=== PATIENT | male | born 1985 | race Caucasian/White ===

== ENCOUNTER 2020-02-02 11:47 | Outpatient (REF) | payer SELFPAY ==
[2020-02-04 12:41] LABS: COVID-19 RT-PCR Result NEGATIVE (Negative)
== END 2020-02-02 12:07 ==
LOC: NCHCN 11:47
PROVIDERS: PCP Physician Assistant Medical; Visit Provider Family Medicine
DX: Z20.828 Contact with and (suspected) exposure to other viral communicable diseases (principal)
CPT/HCPCS: U0003

== ENCOUNTER 2021-02-25 14:22 | Outpatient (REF) | payer OTHER, SELFPAY ==
[2021-02-26 17:18] LABS: COVID-19 RT-PCR UVMMC Result Negative (Negative)
== END 2021-02-25 14:23 | disposition home or self-care (01) ==
LOC: NCHCN 14:22
PROVIDERS: PCP Physician Assistant Medical; Visit Provider Internal Medicine
DX: Z20.822 Contact with and (suspected) exposure to COVID-19 (principal); J02.9 Acute pharyngitis, unspecified
CPT/HCPCS: U0003

== ENCOUNTER 2021-12-08 15:52 | Emergency (ER) | payer OTHER, SELFPAY ==
[2021-12-08 15:56] VITALS: BP 133/80; PULSE 66; RESP 16; TEMP 36.8; O2SAT 98
--- NOTE | 2021-12-08 16:00 | DI.RAD_ITS ---
Exam(s) XR FINGER LT RING EXAM: XR FINGER LT RING CLINICAL HISTORY: trauma. TECHNIQUE: 2D digital imaging was performed. COMPARISON: No exams were available for comparison FINDINGS: 3 views of the left 4th-ring finger: There is soft tissue swelling around the PIP joint. No evidence of fracture or dislocation. No abnormal soft tissue calcifications. No radiopaque foreign body. IMPRESSION: Soft tissue swelling. No fracture. No radiopaque foreign body.. No evidence of osteomyelitis. DATA REPOSITORY: RADIATION DOSE DELIVERED:
--- NOTE | 2021-12-08 17:47 | ED.GENADUL_ITS ---
Discharge Plan Disposition Patient Disposition: HOME Condition: Improving Discharge Details Clinical Impression: Laceration of finger Primary Care Provider: Fran Ronquillo ED Provider: João Trevino Discharge Instructions Instructions: Finger Laceration (ED) Additional Instructions: Watch for any signs of infection and return immediately to the emergency department if these occur. Otherwise keep dressing in place for the next 24-48 hours and then keep wound clean and dry. Return to the emergency department 10 days for suture removal.. Referrals: Fran Ronquillo PA [Primary Care Provider] - (As needed for reassessment) Discharge Data Discharge Date/Time-TO BE ENTERED AT DEPARTURE: 12/08/21 18:06 Medical Decision Making Patient presenting to the emergency department for chief complaint of injury to his left ring finger. He attempted to jump up and push some insulation into the ceiling and when he came back down his ring got caught on something and injured his finger. Patient does states full sensation and movement of the finger but mostly concerned about laceration to the base of the finger. Physical exam shows significantly swollen digit with ring in place. Patient was agreeable to ring removal and ring was cut off using ring cutter. Radiological imaging was performed and showed no acute fracture or worrisome findings. Patient was agreeable to suture repair and please see procedure note for repair. 8 sutures were placed and wound was well approximated. Given that patient just came in and we were able to thoroughly irrigate the wound I do not feel that patient requires antibiotic medication at this time but encouraged to watch for any signs of infection and return immediately if these occur. Patient placed in a f telma splint and encouraged to use this for the next 10 days and to keep wound clean and dry. After discussion of diagnosis and plan of care patient has no further needs, questions, or concerns and states clear understanding to return to the emergency department for any worsening symptoms. This documentation was generated using [employer] system, please disregard any oddities of phrase or misspellings. HPI General Mode of arrival: ambulatory . Date/Time Provider Initiated Documentation: 12/08/21 16:09 . Limitations to Documentation: no limitations . Information obtained by: patient and RN notes reviewed . History of Present Illness 36 year old M presents to the emergency department with the chief complaint of left ring finger injury, described as moderate, with intensity rated at 8. Quality is described as aching, and is localized to the left and upper extremity. Patient started experiencing this minute(s) (30) and it has been constant. No relieving factors improve symptom(s), No exacerbating factors reported . Patient notes no other symptoms.. Patient did receive the following treatments prior to arrival, none Related Data Allergies Allergy/AdvReac Type Severity Reaction Status Date / Time No Known Drug Allergies Allergy Verified 05/30/20 09:43 shrimp Allergy Verified 12/08/21 16:15 General Stated Complaint: Trauma LUCIEN: 2 Review of Systems Cardiovascular Cardiovascular: Denies syncope and Denies lightheadedness Musculoskeletal Musculoskeletal: Reports as per HPI, Denies deformity, Denies limited range of motion and Denies numbness Integumentary/Breasts Skin/Breast: Reports as per HPI Neurologic Neurologic: Denies syncope, Denies numbness and Denies paresthesias PFSH All Active Problems Laceration of finger (Acute) Skin lesion (Acute) Medical History Epididymal cyst Shingles Testicular pain Verruca vulgaris Surgical History H/O vasectomy History of repair of anterior cruciate ligament of left knee Social History Smoking/Tobacco Use Status: Never Smoking risk assessment performed?: Yes Alcohol Intake: current Drug use: Never Substance use type: does not use Do you feel safe at home: Yes Do you feel safe in your relationship?: Yes Exam Const General: cooperative, no acute distress and not ill appearing Orientation: alert, awake and oriented x3 Resp Effort & Inspection: normal respiratory effort, able to speak in complete sentences and no respiratory distress Cardio Rate: regular rate Rhythm: regular rhythm Pulses: normal peripheral pulses Skin General skin exam: no rashes or lesions noted Neuro General: patient alert, patient awake, patient oriented x3, moves all extremities and no focal motor deficits Sensory Exam: no sensory deficits noted Extrem General: normal exam except as noted Left upper extremity: hand Details: neuromotor exam normal, neurosensory exam normal, tendon exam normal, tenderness Location: of the 4th digit, vascular exam Details: radial pulse present and normal capillary refill, normal ROM of fingers, swelling Location: of the 4th digit and laceration 4th digit palmar aspect proximal Details: linear, avulsion, actively bleeding and involving subcutaneous tissue Course Vital Signs Vital signs: Vital Signs Temperature 36.8 C 12/08/21 15:56 Pulse 66 12/08/21 15:56 Respiratory Rate 16 12/08/21 15:56 Blood Pressure 133/80 12/08/21 15:56 Pulse Oximetry 98 12/08/21 15:56 Temperature 36.8 C 12/08/21 15:56 Temperature Source Temporal Artery Scan 12/08/21 15:56 Pulse 66 12/08/21 15:56 Respiratory Rate 16 12/08/21 15:56 Respiratory Effort 12/08/21 16:18 Respiratory Depth Normal 12/08/21 16:18 Respiratory Pattern Normal 12/08/21 16:18 Blood Pressure 133/80 12/08/21 15:56 Blood Pressure Position Sitting 12/08/21 15:56 Pulse Oximetry 98 12/08/21 15:56 Oxygen Delivery Method Room Air 12/08/21 15:56 Oxygen Flow Rate 0 12/08/21 15:56 Pain Level 7 12/08/21 15:56 Procedures Laceration Laceration 1: Site: hand Side (If applicable): left Size (cm): 5 Description: linear and clean Depth: simple, single layer Local Anesthetic: Lidocaine 1% Amount of anesthesia used (mL): 10 Pre-repair: wound explored, irrigated extensively and deep structures intact Skin layer closed with: other (Prolene) Size (cm): 4-0 Number of sutures: 8 Technique: simple, interrupted PAWSS Have you Been Recently Intoxicated or Drunk Within the Last 30 days?: Yes Have you Ever Experienced Previous Episodes of Alcohol Withdrawal?: No Have you ever Experienced Withdrawal Seizures?: No Have you ever Experienced Delirium Tremens(DT)s?: No Have you ever undergone Alcohol Rehabilitation Treatment (i.e, inpt ot out patient treatment programs)?: No Have you ever Experienced Blackouts?: No Have you ever Combined Alcohol with other Downers within the last 90 days?: No Result: 1
[2021-12-08 18:00] VITALS: BP 133/80; PULSE 66; RESP 16; TEMP 36.8; O2SAT 98
== END 2021-12-08 18:06 | disposition home or self-care (01) ==
PROVIDERS: Emergency Provider Nurse Practitioner Family; PCP Physician Assistant Medical
DX: S61.215A Laceration without foreign body of left ring finger without damage to nail, initial encounter (principal); W26.8XXA Contact with other sharp object(s), not elsewhere classified, initial encounter; Y93.39 Activity, other involving climbing, rappelling and jumping off
CPT/HCPCS: 12002; 99283; 73140; 99282

== ENCOUNTER 2021-12-18 13:30 | Emergency (ER) | payer SELFPAY ==
[2021-12-18 13:53] VITALS: BP 127/77; PULSE 66; RESP 14; TEMP 36.6; O2SAT 98
--- NOTE | 2021-12-18 14:03 | W.ED.GENAD ---
Discharge Plan Disposition Patient Disposition: HOME Condition: Stable Discharge Details Clinical Impression: Encounter for removal of sutures Primary Care Provider: Fran Ronquillo ED Provider: Mikala Torres Discharge Instructions Additional Instructions: Have the last suture removed in 3 days, allow it to air dry. No soaking. Referrals: Fran Ronquillo PA [Primary Care Provider] - 5 days Medical Decision Making Will leave one suture to left web for an additional 3 days. Remainder of 7 sutures removed by staff sonographer. This text was generated using [employer] dictation system, please disregard any oddities of phrase or misspellings. HPI General Mode of arrival: ambulatory. Date/Time Provider Initiated Documentation: 12/18/21 13:36. Limitations to Documentation: no limitations. Information obtained by: patient, RN notes reviewed and old records reviewed. HPI Narrative: 36-year-old male presents for suture removal he has 8 sutures placed to his left index finger. This occurred on 12/08/2021 he denies any problems. He does however have a suture within the web that is not well approximated. No signs of infection. Related Data Allergies Allergy/AdvReac Type Severity Reaction Status Date / Time No Known Drug Allergies Allergy Verified 05/30/20 09:43 shrimp Allergy Verified 12/08/21 16:15 General Stated Complaint: SutureRem LUCIEN: 5 Review of Systems Musculoskeletal Musculoskeletal: Reports as per HPI Integumentary/Breasts Skin/Breast: Reports as per HPI (suture removal) PFSH All Active Problems (Updated 12/18/21 @ 14:07 by Mikala Torres NP) Laceration of finger (Acute) Encounter for removal of sutures (Acute) Skin lesion (Acute) Medical History Epididymal cyst Shingles Testicular pain Verruca vulgaris Surgical History H/O vasectomy History of repair of anterior cruciate ligament of left knee Social History Smoking/Tobacco Use Status: Never Smoking risk assessment performed?: Yes Alcohol Intake: current Drug use: Never Substance use type: does not use Do you feel safe at home: Yes Do you feel safe in your relationship?: Yes Exam Skin Trauma: laceration (sutured laceration to left index finger, ) Course Vital Signs Vital signs: Vital Signs Temperature 36.6 C 12/18/21 13:53 Pulse 66 12/18/21 13:53 Respiratory Rate 14 12/18/21 13:53 Blood Pressure 127/77 12/18/21 13:53 Pulse Oximetry 98 12/18/21 13:53 Temperature 36.6 C 12/18/21 13:53 Temperature Source Skin 12/18/21 13:53 Pulse 66 12/18/21 13:53 Respiratory Rate 14 12/18/21 13:53 Blood Pressure 127/77 12/18/21 13:53 Blood Pressure Position Sitting 12/18/21 13:53 Pulse Oximetry 98 12/18/21 13:53 Oxygen Delivery Method Room Air 12/18/21 13:53 Oxygen Flow Rate 0 12/18/21 13:53 Pain Level 0 12/18/21 13:53
--- OUTSIDE RECORDS SUMMARY | 2021-12-18 14:42 | XMS_ITS | Clinical Summary ---
:1985 Demographics Home Phone Preferred Language Unknown Marital Status Unknown Cheondoism Affiliation Unknown Race Unknown Ethnic Group Unknown Author Organization [facility] Address [address] [place] [id number] Care Team Providers Name Role Phone Unavailable Primary Care Provider Unavailable Social History Tobacco Use Types Packs/Day Years Used Date Never Assessed Sex Assigned at Date Recorded Not on file Plan of Treatment Not on file
--- OUTSIDE RECORDS SUMMARY | 2021-12-18 14:42 | XMS_ITS | Encounter Summary ---
:1985 Demographics Home Phone Preferred Language Unknown Marital Status Unknown Holiness Affiliation Unknown Race Unknown Ethnic Group Unknown Author Organization [facility] Address [address] [place] [address] Care Team Providers Name Role Phone Unavailable Primary Care Provider Unavailable Encounter Details Date Type Department Care Team Description 02/02/2020 Lab Requisition [facility] Outr Resulting Lab, Pathology & Laboratory Provider [facility] [address], [place] [id number] Social History Tobacco Use Types Packs/Day Years Used Date Never Assessed Sex Assigned at Date Recorded Not on file documented as of this encounter Plan of Treatment Not on filedocumented as of this encounter Procedures Procedure Name Priority Date/Time Associated Comments Diagnosis DO NOT ORDER Today 02/02/2020 8:50 EDT Results for this STANDALONE - [facility] procedure are in COVID TEST the results section. COVID-19 TESTING Routine 02/02/2020 8:50 EDT Resu lts for this procedure are i n the results section. documented in this encounter Results DO NOT ORDER STANDALONE - [facility] COVID TEST (02/02/2020 8:50 EDT) COVID-19 rt-PCR NEGATIVE Negative [facility] Result Comment: LABORATORY 2019-novel Coronavirus (2019 -nCoV) not detected by the qRT-PCR assay. Consider testing for other respiratory viruses or re-collecting for 2019-nCoV testing. Note: Optimum timing for peak viral levels du ring infections caused by 20 -nCoV have not been determined. Collection of multiple specimens from the same patient may be necessary to detect the virus. Limitations Positive results are indicat laura of active infection with SARS-CoV-2 but do not rule out bacterial infection or co-infection with other viruses. The agent detected may not be the definite cause of diseas e. In addition, detection of viral RNA may not indicate the presence of infectious virus or that SARS-CoV-2 is the causative agent for clinical symptoms. Negative results do not prec lude SARS-CoV-2 infection and should not be used as the sole basis for patient management decisions. Negative results must be combined with clinical observations, patient his tory, and epidemiological in formation. False negative results may also occur if amplification inhibitors are present in the specimen or if inadequate numbers of organisms are present in the specimen. Op timum specimen types and little ing for peak viral levels during infections caused by SARS-CoV-2 have not been fully determined. Collection of multiple specimens (types and time points) from the same patient may be necessary to detect the virus. The test was validated for u with upper respiratory specimens obtained via nasopharyngeal or oropharyngeal swabs in VTM, UTM, M4, M5, M6, saline, and MTM media. The performance of this test has not be en established for other spe cimens. Specimens collected using other FDA recommended Specimen Collection Materials listed in the FDA COVID-19 Diagnostic Technologies communication (July 20, 2019) are pr ocessed with the caveat that they were not all validated for use with this test and the result must be interpreted in this context. Furthermore, a false negative results may occur if a specimen is improperly collected, transported or handled. If the virus mutates in the RT-PCR target region, SARS-CoV-2 may not be detected or may be detected less predictably. Inhibitors or other types of interference may produce a false negative result. An interference study evaluating the effect of common cold medications was not performed. This test is not FDA-cleared but its performance characteristics were established by our CLIA-certified, CAP-accredited, high complexity laboratory in accordance with CLIA regulations, [employer] (CAP) guidel rachel (Jul 13, 2019), and FDA guidance (Jun 24, 2019). This test is only for use un raya the Food and Drug Administration's Emergency Use Authorization. Specimen Swab - Entire nasopharynx (body structur e) Performing Organization Address City/State/ZIP Code Phon e Number [facility] [place], [place] COVID-19 TESTING (02/02/2020 8:50 EDT) COVID-19 rt-PCR NEGATIVE Negative [facility] Result Comment: LABORATORY 2019-novel Coronavirus (2019 -nCoV) not detected by the qRT-PCR assay. Consider testing for other respiratory viruses or re-collecting for 2019-nCoV testing. Note: Optimum timing for peak viral levels du ring infections caused by 20 19-nCoV have not been determined. Collection of multiple specimens from the same patient may be necessary to detect the virus. Limitations Positive results are indicat laura of active infection with SARS-CoV-2 but do not rule out bacterial infection or co-infection with other viruses. The agent detected may not be the definite cause of diseas e. In addition, detection of viral RNA may not indicate the presence of infectious virus or that SARS-CoV-2 is the causative agent for clinical symptoms. Negative results do not prec lude SARS-CoV-2 infection and should not be used as the sole basis for patient management decisions. Negative results must be combined with clinical observations, patient his tory, and epidemiological in formation. False negative results may also occur if amplification inhibitors are present in the specimen or if inadequate numbers of organisms are present in the specimen. Op timum specimen types and little ing for peak viral levels during infections caused by SARS-CoV-2 have not been fully determined. Collection of multiple specimens (types and time points) from the same patient may be necessary to detect the virus. The test was validated for u se with upper respiratory specimens obtained via nasopharyngeal or oropharyngeal swabs in VTM, UTM, M4, M5, M6, saline, and MTM media. The performance of this test has not be en established for other spe cimens. Specimens collected using other FDA recommended Specimen Collection Materials listed in the FDA COVID-19 [employer] communication (July 20, 2019) are pr ocessed with the caveat that they were not all validated for use with this test and the result must be interpreted in this context. Furthermore, a false negative results may occur if a specimen is improperly collected, transported or handled. If the virus mutates in the RT-PCR target region, SARS-CoV-2 may not be detected or may be detected less predictably. Inhibitors or other types of interference may produce a false negative result. An interference study evaluating the effect of common cold medications was not performed. This test is not FDA-cleared but its performance characteristics were established by our CLIA-certified, CAP-accredited, high complexity laboratory in accordance with CLIA regulations, [employer] (CAP) guidel rachel (Jul 13, 2019), and FDA guidance (Jun 24, 2019). This test is only for use un raya the Food and Drug Administration's Emergency Use Authorization. Performing Lab [facility] LABORATORY SERVICES Specimen Swab Performing Organization Address City/State/ZIP Code Phon e Number [facility] [address] [place] [address] SERVICES [facility] [place], [place] documented in this encounter Visit Diagnoses Not on filedocumented in this encounter
--- OUTSIDE RECORDS SUMMARY | 2021-12-18 14:42 | XMS_ITS | Encounter Summary ---
:1985 Demographics Home Phone Preferred Language Unknown Marital Status Unknown Anglican Affiliation Unknown Race Unknown Ethnic Group Unknown Author Organization [facility] Address [address] [place] [address] Care Team Providers Name Role Phone Unavailable Primary Care Provider Unavailable Encounter Details Date Type Department Care Team Description 10/04/2019 Lab Requisition [facility] Outr Resulting Lab, Pathology & Laboratory Provider [facility] [address] [place], [place] [phone] Social History Tobacco Use Types Packs/Day Years Used Date Never Assessed Sex Assigned at Date Recorded Not on file documented as of this encounter Plan of Treatment Not on filedocumented as of this encounter Procedures Procedure Name Priority Date/Time Associated Comments Diagnosis DO NOT ORDER Today 10/04/2019 7:22 EDT Results for this STANDALONE - [facility] procedure are in COVID TEST the results section. COVID-19 TESTING Routine 10/04/2019 7:22 EDT Resu lts for this procedure are i n the results section. documented in this encounter Results DO NOT ORDER STANDALONE - [facility] COVID TEST (10/04/2019 7:22 EDT) COVID-19 rt-PCR NEGATIVE Negative [facility] Result Comment: LABORATORY 2019-novel Coronavirus (2019 -nCoV) [...] Number [facility] [place], [place] COVID-19 TESTING (10/04/2019 7:22 EDT) COVID-19 rt-PCR NEGATIVE Negative [facility] Result Comment: LABORATORY [...] Administration's Emergency Use Authorization. Performing Lab [facility] LABORATORY SERVICES Specimen Swab Performing Organization Address City/State/ZIP Code Phon e Number [facility] [address] [place] [address] SERVICES [facility] [place], [place] documented in this encounter Visit Diagnoses Not on filedocumented in this encounter
--- OUTSIDE RECORDS SUMMARY | 2021-12-18 14:42 | XMS_ITS | Encounter Summary ---
:1985 Demographics Home Phone Preferred Language Unknown Marital Status Unknown Zoroastrianism Affiliation Unknown Race Unknown Ethnic Group Unknown Author Organization [facility] Address [address] [place] [address] Care Team Providers Name Role Phone Unavailable Primary Care Provider Unavailable Encounter Details Date Type Department Care Team Description 02/25/2021 Lab Requisition [facility] Outr Resulting Lab, Pathology & Laboratory Provider [facility] [address] [place] [address] Social History Tobacco Use Types Packs/Day Years Used Date Never Assessed Sex Assigned at Date Recorded Not on file documented as of this encounter Plan of Treatment Not on filedocumented as of this encounter Procedures Procedure Name Priority Date/Time Associated Diagnosis Comme nts COVID-19 TEST [facility] Today 02/25/2021 7:45 EDT LAB PCR COVID-19 TESTING Routine 02/25/2021 7:45 EDT Resu lts for this procedure are i n the results section. documented in this encounter Results COVID-19 TEST [facility] LAB PCR (02/25/2021 7:45 EDT) Specimen Swab - Entire nasopharynx (body structur e) Performing Organization Address City/State/ZIP Code Phon e Number [facility] [address] [place] [address] SERVICES COVID-19 TESTING (02/25/2021 7:45 EDT) COVID-19 rt-PCR Negative Negative [facility] Result Comment: CENTER LAB[facility]ATORY This test has not been FDA c leared or approved. This test has been authorized by FDA under an EUA for use by authorized laboratories. This test has been authorized only for detection of nucleic acid fro SERVICES m 2019-nCoV, not for any oth er viruses or pathogens. This test is only authorized for the duration of the declaration that circumstances exist justifying the authorization of emergency use of in vitro d iagnostic tests for detectio n and/or diagnosis of 2019-nCoV under section 564(b)(1) of Act, 21 U.S.C ?? 360bbb-3(b) (1), unless the authorization is terminated or revoked sooner. Negative results do not prec lude 2019-nCoV infection and should not be used as the sole basis for treatment or other patient management decisions. Negative results must be combined with clinical observa tions, patient history, and epidemiological informatio n. Testing was performed using the angelina SARS-CoV-2 assay ([employer] on the Angelina 6800 System Performing Lab [facility] [address] [facility] Lab [facility] SERVICES Specimen Swab Performing Organization Address City/State/ZIP Code Phon e Number [facility] [address] [place] [address] SERVICES documented in this encounter Visit Diagnoses Not on filedocumented in this encounter
== END 2021-12-18 14:41 | disposition home or self-care (01) ==
LOC: ER 14:40
PROVIDERS: Emergency Provider Registered Nurse Emergency; PCP Physician Assistant Medical
DX: S61.211D Laceration without foreign body of left index finger without damage to nail, subsequent encounter (principal); X58.XXXD Exposure to other specified factors, subsequent encounter
CPT/HCPCS: 99281

== ENCOUNTER 2023-11-23 11:53 | Outpatient (CLI) | payer OTHER, SELFPAY ==
--- NOTE | 2023-11-23 10:33 | DI.RAD_ITS ---
Exam(s) XR KNEE LT 3V AP,LAT,FLAVIA EXAM: XR KNEE LT 3V AP,LAT,FLAVIA CLINICAL HISTORY: LEFT KNEE PAIN. TECHNIQUE: 2D digital imaging was performed. Three views. COMPARISON: No exams were available for comparison FINDINGS: BONES: No acute fracture is present. No bony destructive lesion is seen. Hardware noted in distal femur and proximal tibia. JOINTS: The knee is normally aligned. No joint effusion is seen. Joint spaces are maintained. Mild periarticular spurring. SOFT TISSUE: Normal. IMPRESSION: Mild degenerative changes. DATA REPOSITORY: RADIATION DOSE DELIVERED:
== END 2023-11-23 11:54 | disposition home or self-care (01) ==
LOC: DIORS 11:53
PROVIDERS: PCP Physician Assistant Medical; Visit Provider Student in an Organized Health Care Education/Training Program
DX: Z98.890 Other specified postprocedural states (principal); M17.12 Unilateral primary osteoarthritis, left knee
CPT/HCPCS: 73562

== ENCOUNTER 2023-12-14 01:34 | Outpatient (CLI) | payer OTHER, SELFPAY ==
--- NOTE | 2023-12-14 11:15 | DI.MRI_ITS ---
Exam(s) MR LOWER JOINT LT WO EXAM: MR LOWER JOINT LT WO CLINICAL HISTORY: PAIN,lt acl tear, [id number]. TECHNIQUE: Multiplanar multisequence MRI was performed. COMPARISON: CR XR KNEE LT 3V AP,LAT,FLAVIA from 11/23/2023 FINDINGS: BONES: There is no fracture or contusion pattern. Artifact related to screws in distal femur and pr oximal tibia. Degenerative subchondral an in cyst in proximal anterior tibia. JOINTS: A small joint effusion is present. Articular cartilage: Patellofemoral joint: Irregularity and high signal at the cartilage of the patellar apex Medial femoral tibial joint: Articular cartilage is unremarkable. Lateral femoral tibial joint: Focal cartilage thinning extending down to bone of the lateral femoral condyle. Small subjacent area of edema. LIGAMENTS: Anterior Cruciate: Status post ACL repair which appears intact. Posterior Cruciate: Unremarkable. Medial Collateral:Unremarkable. Lateral Collateral ligament complex: Unremarkable. TENDONS: Extensor mechanism: Unremarkable. Medial retinaculum: Unremarkable. Lateral retinaculum: Unremarkable. Popliteus: Unremarkable. MENISCI: The medial meniscus is unremarkable. The lateral meniscus an anterior horn of the lateral meniscus appears diminutive. This could be post surgical. MUSCLES: Unremarkable. SOFT TISSUES: Unremarkable. IMPRESSION: Intact ACL repair. Anterior horn of the lateral mass is diminutive which could be related to previous surgery or previou s tear. 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 DATA REPOSITORY:
== END 2023-12-14 01:54 ==
LOC: DI 01:34
PROVIDERS: PCP Physician Assistant Medical; Visit Provider Student in an Organized Health Care Education/Training Program
DX: S83.512A Sprain of anterior cruciate ligament of left knee, initial encounter (principal); X58.XXXA Exposure to other specified factors, initial encounter
CPT/HCPCS: 73721

== ENCOUNTER 2024-01-10 03:36 | Outpatient (CLI) | payer OTHER, SELFPAY ==
--- NOTE | 2024-01-10 08:45 | DI.RAD_ITS ---
Exam(s) XR FOOT LT COMPLETE EXAM: XR FOOT LT COMPLETE CLINICAL HISTORY: Left foot pain, M79.672. TECHNIQUE: 2D digital imaging was performed. Three views. COMPARISON: No exams were available for comparison FINDINGS: BONES: No acute fracture is present. No bony destructive lesion is seen. Tiny enthesophyte at the A chilles insertion. JOINTS: No dislocation present. Plantar arch is maintained. No significant degenerative changes. SOFT TISSUE: Mild lateral swelling. IMPRESSION: No acute abnormality. DATA REPOSITORY: RADIATION DOSE DELIVERED:
== END 2024-01-10 03:56 ==
LOC: DI 03:36
PROVIDERS: PCP Physician Assistant Medical; Visit Provider Podiatrist
DX: M79.672 Pain in left foot (principal)
CPT/HCPCS: 73630

== ENCOUNTER 2024-01-20 15:49 | Outpatient (REF) | payer OTHER, SELFPAY ==
[2024-01-20 20:28] LABS: Glucose 100 mg/dL (74-106)
[2024-01-20 20:42] LABS: Calculated LDL 113 mg/dL (<100); Cholesterol 190 mg/dL (<200); HDL Cholesterol 61 mg/dL (40-60); Triglyceride 82 mg/dL (<150)
== END 2024-01-20 15:50 | disposition home or self-care (01) ==
LOC: NCHCN 15:49
PROVIDERS: PCP Physician Assistant Medical; Visit Provider Physician Assistant Medical
DX: Z00.00 Encounter for general adult medical examination without abnormal findings (principal)
CPT/HCPCS: 80061; 82947